=== PATIENT | male | born 1995 | race Two or more races ===

== ENCOUNTER 2024-05-09 09:46 | Emergency (ER) | payer OTHER ==
[~2024-05-09] VITALS: Ht 172.7 cm; Wt 59.0 kg
[2024-05-09] MEDS ORDERED: PANTOPRAZOLE 40 MG VIAL ONE (10:18)
[2024-05-09] MEDS ORDERED: ONDANSETRON HCL/PF 4 MG/2 ML VIAL ONE (10:18)
[2024-05-09] MEDS ORDERED: LORAZEPAM INJ 2 MG/ML VIAL ONE (10:19)
[2024-05-09] MEDS: IV NS 0.9% 1,000 ML BAG IV ONE (10:44)
[2024-05-09] MEDS: LORAZEPAM INJ 2 MG/ML VIAL IV ONE (10:46)
[2024-05-09] MEDS: PANTOPRAZOLE 40 MG VIAL IV ONE (10:47)
[2024-05-09] MEDS: ONDANSETRON HCL/PF 4 MG/2 ML VIAL IVP ONE (10:48)
[2024-05-09] MEDS ORDERED: CHLO25CA22 PO (11:06)
[2024-05-09 11:25] VITALS: BP 153/82; TEMP 98.2; O2SAT 97
== END 2024-05-09 11:25 | disposition home or self-care (01) ==
LOC: ER 10:03
DX: K29.20 Alcoholic gastritis without bleeding (principal); F10.239 Alcohol dependence with withdrawal, unspecified; R00.0 Tachycardia, unspecified; R00.2 Palpitations; R25.1 Tremor, unspecified; R11.2 Nausea with vomiting, unspecified; Y90.9 Presence of alcohol in blood, level not specified
CPT/HCPCS: 82962-TC; J2060; J2405; J2470; J7030

== ENCOUNTER 2024-10-06 08:40 | Emergency (ER) | payer OTHER ==
[~2024-10-06] VITALS: Ht 167.6 cm; Wt 59.0 kg
[~2024-10-06 08:40] MED LIST: CHLO25CA22 PO
[2024-10-06] MEDS ORDERED: GUAIFENESIN/D-METHORPHAN HB 5 ML UDC ONE (10:00)
[2024-10-06] MEDS ORDERED: ACETAMINOPHEN ES 500 MG TABLET ONE (10:01)
[2024-10-06] MEDS: GUAIFENESIN/D-METHORPHAN HB 5 ML UDC PO ONE (10:03)
[2024-10-06] MEDS: ACETAMINOPHEN ES 500 MG TABLET PO ONE (10:04)
[2024-10-06] MEDS ORDERED: GUAI1TBM19 PO (10:30)
[2024-10-06] MEDS ORDERED: BENZ-13 PO (10:30)
[2024-10-06 10:36] VITALS: BP 108/80; TEMP 100.9; O2SAT 96
== END 2024-10-06 10:37 | disposition home or self-care (01) ==
LOC: ER 08:43
DX: J06.9 Acute upper respiratory infection, unspecified (principal); B97.89 Other viral agents as the cause of diseases classified elsewhere